=== PATIENT | female | born 1985 | race Caucasian/White ===

== ENCOUNTER 2023-03-29 08:52 | Day surgery (SDC) | payer OTHER, BC ==
[2023-03-29 09:10] LABS: HCG URINE TEST NEGATIVE (NEGATIVE)
[2023-03-29] MEDS ORDERED: Lactated Ringers 1,000 ML IV ONE (09:25)
[2023-03-29] MEDS ORDERED: CEFAZOLIN 2 GM-D5W BAG** 2 GM/50 ML ML IV ONE (09:25)
[2023-03-29] MEDS ORDERED: CEFAZOLIN 2 GM-D5W BAG** 2 GM/50 ML ML IV SCH (09:30)
[2023-03-29] MEDS ORDERED: Lactated Ringers 1,000 ML IV SCH (09:30)
[2023-03-29 09:46] LABS: Hematocrit 39.1 % (35-47); Hemoglobin 13.2 g/dL (12.0-16.0); Mean Cell Volume 86.7 fL (78-100); Mean Corpuscular Hemoglobin 29.3 pg (26-32); Mean Corpuscular Hgb Concent. 33.8 g/dL (32-36); Mean Platelet Volume 9.7 fL (7.5-11.0); Platelet Count 255 x10^3/uL (150-450); Red Blood Count 4.51 x10^6/uL (4.1-5.4); Red Cell Distribution Width 12.2 % (11.5-14.0); White Blood Count 5.7 x10^3/uL (4.0-10.5)
[2023-03-29 10:01] LABS: ALBUMIN 4.2 g/dL (3.5-5.0); ANION GAP 8.2 MEQ/L (5-15); BILIRUBIN,TOTAL 0.5 mg/dL (0.2-1.3); Creatinine 1 0.86 mg/dL (0.52-1.04); EST GLOMERULAR FILTRATION RATE 88.1 ML/MIN; Potassium 4.1 mmol/L (3.5-5.1)
[2023-03-29 10:03] VITALS: RESP 16
[2023-03-29] MEDS ORDERED: Marcaine 0.5%/Epinephrine 10 ML ONE (10:53)
[2023-03-29] MEDS ORDERED: Versed 2 MG/2 ML Injection ONE (10:53)
[2023-03-29] MEDS ORDERED: Naropin 0.5% 30 ML VIAL ONE (10:53)
[2023-03-29] MEDS ORDERED: SUBLIMAZE 100 MCG/2 ML ONE ×3 (10:53→15:46)
[2023-03-29] MEDS ORDERED: Zemuron 100 MG/10 ML ONE (11:31)
[2023-03-29] MEDS ORDERED: Decadron 4 MG INJ ONE (11:31)
[2023-03-29] MEDS ORDERED: Zofran 4 MG/2 ML VIAL ONE (11:31)
[2023-03-29] MEDS ORDERED: TORAdol 30 mg Injection ONE (11:31)
[2023-03-29] MEDS ORDERED: BRIDION 200MG/2ML IV ONE (11:31)
[2023-03-29] MEDS ORDERED: DIPRIVAN 200 MG/20 ML IV ONE (11:31)
[2023-03-29] MEDS ORDERED: Xylocaine-Mpf 2% 5 Ml Vial ONE (11:31)
[2023-03-29] MEDS ORDERED: Ephedrine Sulfate 50 MG/ML ONE (13:11)
--- NOTE | 2023-03-29 15:13 | XRAY ---
Indication: Right foot gastrocnemius recession, Bear wedge osteotomy, and lapidus arthrodesis. Intraoperative fluoroscopy provided for 4 minutes 47 seconds. 48 digital spot images ultimately demonstrates 1st tarsometatarsal fusion with intact hardware and osteotomy anterior calcaneus. Correlate with intraoperative findings/report.
[2023-03-29 16:36] VITALS: TEMP 97.2
[2023-03-29 16:44] VITALS: BP 104/71; PULSE 94; O2SAT 97
--- NOTE | 2023-04-01 18:54 | XRAY ---
4 minutes and 47 seconds of fluoroscopy was used in surgery for a right foot gastrocnemius recession, Bear wedge osteotomy, and lapidus arthrodesis.
--- NOTE | 2023-04-02 14:52 | OP ---
SURGERY DATE/TIME: 03/29/2023 1205 PREOPERATIVE DIAGNOSES: 1) Right foot pain. 2) Gastrocnemius equinus. 3) Plantar fasciitis. 4) Pes planus. 5) Hallux abductovalgus. 6) Left ankle pain. POSTOPERATIVE DIAGNOSES: 1) Right foot pain. 2) Gastrocnemius equinus. 3) Plantar fasciitis. 4) Pes planus. 5) Hallux abductovalgus. 6) Left ankle pain. PROCEDURES: 1) Gastrocnemius resection. 2) Bone marrow aspirate harvest. 3) Bear calcaneal allograft wedge. 4) Instep plantar fasciotomy. 5) Lapidus arthrodesis first tarsometatarsal joint right foot. SURGEON: Pierce Seth DPM. GEODETIC SURVEY DIRECTOR: None. ANESTHESIA: General plus a preoperative block. See anesthesia report for details, popliteal and saphenous. HEMOSTASIS: Thigh tourniquet set to 300 mm of Mercury for 120 total tourniquet minutes. ESTIMATED BLOOD LOSS: Approximately 10 cc. MATERIALS: An 8 mm Bear wedge allograft bone marrow aspirate harvest, Imcor 5.9 x 28 mm post with a 3.5 x 38 and 3.5 x 26 screw, 3-0 Nylon, 4-0 Monocryl. INJECTABLES: See anesthesia report for details. INDICATION FOR SURGERY: Jatin is a very pleasant 37-year-old female very well-known to my service for a combination of plantar fasciitis and bunion pain as well as symptoms of a painful flat foot including but not limited to posterior tibial tendon pain as well as some tibial impingement and peroneal tendonitis. The patient has had these pains that have been concurrent and ongoing for a number of years now and has not responded to any conservative therapy. The patient has performed physical therapy, been provided injections, has been provided orthotics custom and [id number] and she has not had any intermediate alleviation of her symptoms. At this time, the patient wishes to proceed in addressing these issues. The patient understands all risks, complications and benefits of the surgical intervention including but not limited to infection, hematoma, seroma, possibility of delayed wound healing, nonwound healing, possible nerve damage, possible failure of surgical intervention, possible irritating hardware and possible need for removal of said hardware, revision of surgical outcome. No guarantees have been provided as to the outcome of surgical intervention at this time. Plenty of time was allowed for the patient to ask questions which were answered to her apparent satisfaction. It is with that we decided to proceed. DESCRIPTION OF PROCEDURE AND FINDINGS: The patient was brought into the postoperative anesthesia care unit prior to surgical intervention and a popliteal and saphenous block was provided to the right lower extremity. See anesthesia report for details. Following this, the patient was brought into the OR and placed on the OR table in the supine position. General anesthesia was administered until the patient was sedated. To the right thigh a well-padded thigh tourniquet was applied and the tourniquet was set to 300 mm of Mercury. The right lower extremity was prepped and draped in typical sterile fashion and lowered onto the surgical field. Prior to the procedure under fluoroscopic guidance and weighted views were taken demonstrating a calcaneal axial which is relatively neutral with only a few degrees of valgus prior to surgical intervention. A significantly widened intermetatarsal and/or as well as significant rotation of the sesamoid into the groove. From that standpoint, the decision was made to forego some aspects of the procedure that were initially planned even before making incision. At this time a small posterior medial incision was made making sure not to damage any neurovascular structures in specific the saphenous nerve and saphenous vein. Following this, blunt dissection was carried down to the crural fascia which was incised. Following this, blunt dissection was carried down to the posterior aspect of the gastrocnemius aponeurosis. A pediatric speculum, was inserted and rotated into the deficit. A 10 blade was utilized to incise the aponeurosis being careful and under direct visualization making sure not to damage the sural nerve. Following this, any constrictures were identified and snipped with a heavy pair of scissors. From that standpoint, the speculum was then retracted out of the deficit. Copious amounts of sterile saline were utilized to flush the surgical site and 2-0 Vicryl and 3-0 Nylon was utilized to coapt the subcutaneous and the skin edges in a simple interrupted buried-type fashion and a horizontal mattress-type fashion respectively. From that standpoint, attention was directed to the lateral wall of the calcaneus in the safe zone and a small poke hole was made malleting in a trocar and removing approximately 55 bone marrow aspirate. From this standpoint, this was handed off the field and spun down for later use with the allograft. At this time under fluoroscopic guidance, the anterior process was identified as well as calcaneus cuboid joint was identified. A linear incision was made and once finding the peroneal tendon, they were removed from their sheath and retracted out of the way. A guidewire was utilized at the 1 to 1.5 cm bonifacio and between these two lines, attempting to bonifacio from the calcaneocuboid joint and from these lines the guidewires were placed guiding the sagittal saw for initial cut. After making an initial scoring, a combination of mallet and thin osteotomes were introduced into the deficit until the wedge was made within the lateral wall of the calcaneus 1.1 to 1.5 cm from the calcaneocuboid joint. An 8 mm was trialed and deemed to be an adequate size. Once soaked in bone marrow aspirate was introduced into the deficit. This was checked under multiple fluoroscopic views and deemed to be in excellent position also demonstrating improved calcaneal inclination angle and a significantly improved talar head uncovered resolving some component of her flat foot. Once again the calcaneal axial was checked and almost was in a neutral position the calcaneus relative to the longitudinal axis of the tibia. Following this, bone wax was introduced into the area. Any areas of possible impingement or irritating sharp edge were smoothed down utilizing a combination of the edge of the 31 mm blade, sagittal saw and bone wax. Peroneal tendons were inspected demonstrating no disease. Lateral and PA views demonstrated adequate apposition of the graft in its position. Following this, attention was directed to the plantar aspect of the left foot where a 3 cm incision was made at the medial Instep approximately 1.5 cm from the weightbearing surface of the heal and just medial to the midline this was carried down carefully to the level of the plantar fascia moving the fat pad out of the way in order and only cutting approximately one-third of the plantar fascia. This was cleansed with copious amounts of sterile saline. 4-0 Monocryl was utilized to coapt the subcutaneous edges in a simple interrupted buried-type fashion and then 3-0 Nylon was utilized in a simple interrupted fashion to coapt of the skin. Following this, attention was directed to the dorsal aspect of the first metatarsal and medial cuneiform where a linear incision was made just directly over the top of the site. From this standpoint, careful dissection was carried down not to damage any neurovascular structures along the way. The extensor hallucis longus was identified and retracted laterally until the dorsal surface of the medial cuneiform and intermediate cuneiform was observed. From this standpoint, dissection of the joint was carried out and a pin was placed using the guide wedged between the intermediate and medial cuneiform guiding our starting point. Using this a cut guide was utilized to make our cut from the metatarsal side and the medial cuneiform side. Metatarsal side only took a thin sliver perpendicular to the longitudinal axis of the metatarsal and then the medial cuneiform was resected with respect to the intercuneiform base and removing any atavistic portion of the medial cuneiform. These portions were removed. Copious amounts of prep were performed utilizing 2 mm drill, curette and a curved osteotome with mallet to increase the surface area. The Imcor was introduced into the drill hole. The drill hole was made in the allograft that was pulled from the site and saved for later use, this was then secured in near parallel position utilizing a 3.5 x 38 mm screw and a 3.5 x 26 mm screw this was checked on multiple angles making sure to reduce the frontal plane rotation, sesamoid position, the intermetatarsal angle as well as gain adequate compression through the first tarsometatarsal joint. Following this, multiple views were taken and final pictures. All remaining surgical sites were coapting utilizing 4-0 Monocryl and 3-0 Nylon in a simple interrupted buried-type fashion for the subcu and horizontal mattress-type fashion for the skin closure. Following this, a dressing consisting of Betadine, Adaptic, 4x4, Kerlix and a well-padded posterior splint with Sugar-Tong was applied to the patient's right lower extremity with the foot orthogonal relative to longitudinal axis of the leg. The patient was then reversed from anesthesia and returned to the postoperative anesthesia care unit with vital signs stable and vascular status intact. The patient handled the anesthesia as well as the procedure without significant complications. Postoperative orders as indicated in the patient's discharge chart.
== END 2023-03-29 17:10 | disposition home or self-care (01) ==
LOC: SDC 08:52
PROVIDERS: ATTEND Podiatrist Foot & Ankle Surgery
DX: M21.961 Unspecified acquired deformity of right lower leg (principal); M79.671 Pain in right foot; M72.2 Plantar fascial fibromatosis; M21.41 Flat foot [pes planus] (acquired), right foot; M20.11 Hallux valgus (acquired), right foot; M25.572 Pain in left ankle and joints of left foot
CPT/HCPCS: 27687; 28008; 28297; 28300; 36415; 38220; 73630; 76000; 80053; 81025; 85027; 97116; C1713; C1889; J0690; J1100; J1885; J2250; J2405; J2704; J2795; J3010